=== PATIENT | female | born 1990 | race Caucasian/White ===

== ENCOUNTER 2020-09-26 15:25 | Emergency (ER) | payer OTHER, MEDICAID, SELFPAY ==
[2020-09-26 15:41] VITALS: BP 168/74; PULSE 83; RESP 17; TEMP 36.9; O2SAT 98; BMI 43.9
--- NOTE | 2020-09-26 15:44 | DI.RAD.S_ITS ---
PROCEDURE: XR KNEE LT 3V INDICATIONS: fall LEFT KNEE PAIN TECHNIQUE: 3 views of the knee were acquired. COMPARISON: None. FINDINGS: Bones: No fractures or dislocations. No suspicious bony lesions. Soft tissues: No joint effusion. No suspicious soft tissue calcifications. IMPRESSION: No trauma found. Dictated by: Carlo Rondon M.D. on 09/26/2020 at 16:36 Approved by: Carlo Rondon M.D. on 09/26/2020 at 16:36
--- NOTE | 2020-09-26 17:30 | ED.LOWEXIN ---
HPI - Extremity Injury (Lower) General Chief Complaint: Extremity Injury, Lower Stated Complaint: LEFT FOOT INJURY Time Seen by Provider: 09/26/20 15:32 Source: patient Mode of arrival: Ambulatory History of Present Illness HPI Narrative: 30-year-old female nonsmoker with noncontributory medical history presents with a chief complaint of a left knee injury suffered earlier this afternoon. She was running in the backyard and tripped over uneven ground and a farm animals and while falling twisted and bent her left knee awkwardly. She denies any direct traumatic impact. She has no head neck or back pain. She denies any numbness, tingling or weakness but does state that when she ambulates her knee feels unstable Related Data Home Medications Medication Instructions Recorded Confirmed fluoxetine 40 mg capsule 40 mg PO DAILY 09/26/20 09/26/20 Previous Rx's Medication Instructions Recorded ibuprofen 600 mg tablet 600 mg PO TID-QID PRN #20 tab 09/26/20 Allergies Allergy/AdvReac Type Severity Reaction Status Date / Time No Known Drug Allergies Allergy Verified 09/26/20 15:45 Review of Systems Review of Systems Narrative: GENERAL: Denies chills, fatigue, malaise, fever, sweats. HEENT: Denies sinus pain, ear pain, sore throat, difficulty swallowing, dizziness. RESPIRATORY: Denies dyspnea, cough, wheezing, hemoptysis, sputum. CARDIOVASCULAR: Denies chest pain, palpitations, orthopnea, edema, GASTROINTESTINAL: Denies nausea, vomiting, abdominal pain, diarrhea, constipation, melena. : Denies dysuria, frequency, incontinence, hematuria, urinary retention. MUSCULOSKELETAL: See HPI SKIN: Denies rash, skin lesions, or other NEUROLOGIC: Denies weakness, headache, numbness, change in speech, confusion, seizures, incoordination. PSYCHIATRIC: No concerning psychosocial issues. 12 point review of systems is negative except for those stated above Patient History Social History Smoking Status: Never smoker Smoking Status: Never smoker alcohol intake frequency: holidays/special occasions only Substance Use Type: does not use Exam Narrative Exam Narrative: GENERAL: 30 [] year old patient appears stated age. Well-developed patient, in mild distress. HEAD: Atraumatic. Normocephalic. EYES: Pupils equal round and reactive. Extraocular motions intact. No scleral icterus. No injection or drainage. ENT: Nose without bleeding, purulent drainage. Throat without erythema, tonsillar hypertrophy or exudate. Airway patent. NECK: Trachea midline. Non tender CARDIOVASCULAR: Regular rate and rhythm without murmurs, gallops, or rubs. RESPIRATORY: Clear to auscultation. Breath sounds equal bilaterally. No wheezes, rales, or rhonchi. GASTROINTESTINAL: Abdomen soft, non-tender, nondistended. EXTREMITIES: Pain with palpation along lateral joint line of left knee, no obvious effusion, no ligamentous instability, no pain with Dragan's. BACK: Nontender without deformity or crepitance. No flank tenderness. NEURO: AOx3. SKIN: No rash or erythema of visible areas Initial Vital Signs Initial Vital Signs: Vital Signs Temperature 98.4 F 09/26/20 15:41 Pulse Rate 83 09/26/20 15:41 Respiratory Rate 17 09/26/20 15:41 Blood Pressure 168/74 H 09/26/20 15:41 Pulse Oximetry 98 09/26/20 15:41 Procedures Orthopedic Splinting/Casting Injury #1: Side: left Lower Extremity Injury Location: knee Lower Extremity Immobilizer: knee immobilizer Other Orthopedic Equipment: crutches Post splinting neuro exam: intact Post splinting vascular exam: intact Placed by: Nursing Course Orders Ordered: ED Orders 09/26/20 15:44 XR knee LT 3V Stat Vital Signs Vital signs: Vital Signs - 8 hr 09/26/20 15:41 Temperature 98.4 F Pulse Rate 83 Respiratory Rate 17 Blood Pressure 168/74 H Pulse Oximetry 98 MDM - Extremity Injury (Lower) Imaging Data Extremity x-ray #1: Radiologist's Impression: [address] [id number] ReportSigned Patient: Gunjan Garcia [facility]#: [id number]: 1990Acct:[id number]/Sex: 30 / FDate of Service: 09/26/20Loc: EDAccession Number: [id number] Procedure: XR knee LT 3V Ordering Provider: Travis Garcia D.O. PROCEDURE: XR KNEE LT 3V INDICATIONS: fall LEFT KNEE PAIN TECHNIQUE: 3 views of the knee were acquired. COMPARISON: None. FINDINGS: Bones: No fractures or dislocations. No suspicious bony lesions. Soft tissues: No joint effusion. No suspicious soft tissue calcifications. IMPRESSION: No trauma found. Dictated by: Carlo Rondon M.D. on 09/26/2020 at 16:36 Approved by: Carlo Rondon M.D. on 09/26/2020 at 16:36 Discharge Plan Departure Patient Disposition: Home Clinical Impression: Knee Injury Qualifiers: Encounter type: initial encounter Laterality: left Qualified Code(s): S89.92XA - Unspecified injury of left lower leg, initial encounter Instructions: DI for Knee Pain Activity Restrictions/Additional Instructions: *You have been diagnosed with [left knee pain, likely soft tissue injury, possible meniscus] *What to do: *Please continue to take your regular medications as directed. [ x] New medication prescriptions sent to your pharmacy: [[facility]] [ ] New medication written as a paper prescription [ ] No new medications given *Please follow up with your primary care provider in 2-3 days, call for an appointment. Let them know you were seen in the Emergency Department and that we ask that you be seen in follow up. We will electronically transmit a record of today's note if your PCP is in our system *If you do not have a primary care provider please contact the [facility] Resource line at [phone]. They will ask some questions about your medical history and help get you set up with a doctor in the community. *Return to Emergency Department if you should have any new, worsening or concerning symptoms, such as [fever greater than 101 F, shaking chills, worsening pain, persistent vomiting or other bothersome symptoms] Prescriptions: New ibuprofen 600 mg tablet 600 mg PO TID-QID PRN (Reason: pain) Qty: 20 RF: 0 No Action fluoxetine 40 mg capsule 40 mg PO DAILY RF: 0
== END 2020-09-26 18:20 | disposition home or self-care (01) ==
PROVIDERS: Emergency Provider Emergency Medicine
DX: S89.92XA Unspecified injury of left lower leg, initial encounter (principal); X50.1XXA Overexertion from prolonged static or awkward postures, initial encounter
CPT/HCPCS: 73562; 99283